=== PATIENT | female | born 1980 | race African-American/Black ===

== ENCOUNTER 2017-08-13 13:18 | Emergency (ER) | payer OTHER ==
[2017-08-13 13:30] VITALS: BP 124/87; PULSE 74; TEMP 98.7; BMI 27.3
[2017-08-13] MEDS ORDERED: KETOROLAC TROMETHAMINE 60 MG/2 ML VIAL IM ONE (14:00)
[2017-08-13] MEDS ORDERED: KETOROLAC TROMETHAMINE 60 MG/2 ML VIAL ONE (14:02)
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
== END 2017-08-13 14:17 | disposition home or self-care (01) ==
LOC: JERFT 13:18 → JER 13:18 → JERFT 14:17
PROC: 2W2DX4Z Dressing of Left Lower Arm using Bandage (ICD-10-PCS; principal; 2017-08-13)
PROC: 3E0233Z Introduction of Anti-inflammatory into Muscle, Percutaneous Approach (ICD-10-PCS; 2017-08-13)
DX: T23.172A Burn of first degree of left wrist, initial encounter (principal); S80.01XA Contusion of right knee, initial encounter; V43.52XA Car driver injured in collision with other type car in traffic accident, initial encounter; W22.11XA Striking against or struck by driver side automobile airbag, initial encounter; Y92.414 Local residential or business street as the place of occurrence of the external cause; Y93.89 Activity, other specified; Y99.9 Unspecified external cause status
CPT/HCPCS: 99281-25

== ENCOUNTER 2019-05-17 15:34 | Day surgery (SDC) | payer OTHER ==
[2019-05-17 16:21] LABS: BASO % 0.7 % (0-2.0); HEMATOCRIT 35.5 % (32.4-45.2); HEMOGLOBIN 12.2 GM/dL (10.7-15.3); MCH 28.3 pg (25.7-33.7); MCHC 34.5 g/dl (32.0-36.0); MEAN CELL VOLUME 82.2 fl (80-96); MEAN PLT VOLUME 8.2 fl (7.5-11.1); MONO % 6.1 % (3.8-10.2); NEUT % 61.2 % (42.8-82.8); PLATELET COUNT 252 K/MM3 (134-434); RBC 4.32 M/mm3 (3.60-5.2); WHITE BLOOD COUNT 7.2 K/mm3 (4.0-10.0)
--- NOTE | 2019-05-17 16:24 | PDOC ---
Documentation entered by Raina Jeong SCRIBE, acting as scribe for Ela Nielson MD. Ela Nielson MD: This documentation has been prepared by the Jean-Paul coulter Brenda, SCRIBE, under my direction and personally reviewed by me in its entirety. I confirm that the documentation accurately reflects all work, treatment, procedures, and medical decision making performed by me. Attending Attestation - Resident Resident Name: Dylon Ferrera - ED Attending Attestation I have performed the following: I have examined & evaluated the patient, The case was reviewed & discussed with the resident, I agree w/resident's findings & plan, Exceptions are as noted - HPI HPI: 05/17/19 16:33 The patient is a 38 year old female, with no significant PMH who was seen at her medical appointment scheduler's office today for follow up of fibroid work up started in November. While there, she mentioned that she has been spotting for the past 2 weeks and also has lower abdominal pain. She was advised to come to the ED for further evaluation. Denies fever, chills, nausea, vomiting, diarrhea and constipation. Denies any urinary symptoms. Allergies: NKA Past surgical history: None reported Social history: Denies any tobacco use. PCP: Ana Galvez 05/17/19 16:50 - Physicial Exam PE: 05/17/19 16:23 GENERAL: The patient is in no acute distress. ENT: Ears normal, nares patent, oropharynx clear without exudates. Moist mucous membranes. NECK: Normal range of motion, supple LUNGS: Breath sounds equal, clear to auscultation bilaterally. No wheezes, and no crackles. HEART:Regular rate and rhythm, normal S1 and S2 without murmur, rub or gallop. ABDOMEN: Soft, lower abdominal tenderness R>L EXTREMITIES: Normal range of motion, no edema. NEUROLOGICAL: Cranial nerves II through XII grossly intact. Normal speech. No focal neurological deficits. SKIN: Warm, Dry, normal turgor, no rashes or lesions noted. - Critical Care Time Total Critical Care Time: 60 Critical Care Statement: The care of this patient involved high complexity decision making to prevent further life threatening deterioration of the patient 's condition and/or to evaluate & treat vital organ system(s) failure or risk of failure. - Medical Decision Making 05/17/19 16:27 Laboratory Tests 05/17/19 16:00 WBC 7.2 Hgb 12.2 Hct 35.5 Plt Count 252 05/17/19 16:51 Laboratory Tests 05/17/19 05/17/19 05/17/19 16:00 16:00 16:00 INR 1.01 BUN 8.2 Creatinine 0.7 Urine Ketones 2+ H Urine Blood 3+ H Urine Nitrite Negative Ur Leukocyte Esterase 1+ H Urine WBC (Auto) 16 Urine Casts (Auto) 14 U Epithel Cells (Auto) 36.9 Urine Bacteria (Auto) 431.7 05/17/19 16:53 US pending 05/17/19 17:23 Laboratory Tests 05/17/19 16:00 Beta HCG, Quant 58535.3 US with right ovarian ectopic - 7 weeks call placed to Dr Hutchins immediately He is reviewing images Will call in OR team Clinical Impression: Right ectopic , initial presentation
[2019-05-17 16:37] LABS: ALBUMIN 4.2 g/dl (3.4-5.0); BLOOD UREA NITROGEN 8.2 mg/dL (7-18); CREATININE 0.7 mg/dL (0.55-1.3); POTASSIUM 3.3 mmol/L (3.5-5.1); TOT PROT 7.8 g/dl (6.4-8.2)
[2019-05-17 16:40] LABS: EPI CELLS 36.9 /HPF (0-5/HPF); HYALINE CASTS 14 /lpf (0-8); URINE APPEARANCE CLOUDY; URINE BACTERIA 431.7 /hpf (NEGATIVE); URINE BILIRUBIN NEGATIVE (NEGATIVE); URINE COLOR YELLOW; URINE GLUCOSE (UA) NEGATIVE (NEGATIVE); URINE KETONE 2+ (NEGATIVE); URINE LEUK ESTERASE 1+ (NEGATIVE); URINE NITRITE NEGATIVE (NEGATIVE); URINE PROTEIN NEGATIVE (NEGATIVE); URINE WBC 16 /hpf (0-5)
--- NOTE | 2019-05-17 16:42 | PDOC ---
History of Present Illness - General Chief Complaint: ,Possible Stated Complaint: ECTOPIC Time Seen by Provider: 05/17/19 15:55 - History of Present Illness Initial Comments: The pt is a 38F w/ no reported PMH who presents from her OBGYN office for evaluation of 2 weeks of vaginal spotting and pelvic pain. She was seen at her OBGYN today for a routine sono but was unable to see the MD. The pt states that the [employer] tech expressed concern for an ecopic and recommended she proceed to the ED. The pt did not think she may be . Her last LMP was . There was not test performed at the OB office. She states the pain is intermittent, sharp, non-radiating, not allevaited or exacerbated by anything she can identify. She denies fevers/chills, chest pain, trouble breathing, N/V/C/D, dysuria, hematuria, or changes in sensation PMH: Denies PSH: C/S 11 y ago SH: Denies x3 Meds: Denies 05/17/19 16:46 Past History - Past Medical History Allergies/Adverse Reactions: Allergies Allergy/AdvReac Type Severity Reaction Status Date / Time No Known Allergies Allergy Verified 05/17/19 15:39 Home Medications: Ambulatory Orders Ibuprofen [Motrin -] 600 mg PO QID #28 tablet 05/18/19 COPD: No - Reproductive History Is Patient Now?: Yes (CFMD TODAY , POSSIBLE ECTOPIC) (#): 4 Para: 2 - Immunization History Immunization Up to Date: Yes - Suicide/Smoking/Psychosocial Hx Smoking History: Never smoked Have you smoked in the past 12 months: No Information on smoking cessation initiated: No Hx Alcohol Use: No Drug/Substance Use Hx: No Substance Use Type: None Review of Systems - Review of Systems Able to Perform ROS?: Yes Comments:: GENERAL/CONSTITUTIONAL: No fever or chills. No weakness HEAD, EYES, EARS, NOSE AND THROAT: No change in vision. No change in hearing. No sore throat CARDIOVASCULAR: No chest pain or shortness of breath RESPIRATORY: Denies cough GASTROINTESTINAL: No nausea, vomiting, diarrhea or constipation GENITOURINARY: No dysuria, frequency, or change in urination MUSCULOSKELETAL: No joint or muscle swelling or pain. No neck or back pain SKIN: No rash NEUROLOGIC: No headache, vertigo, loss of consciousness, or change in strength/ sensation ENDOCRINE: No increased thirst. No abnormal weight change HEMATOLOGIC/LYMPHATIC: No anemia, easy bleeding, or history of blood clots ALLERGIC/IMMUNOLOGIC: No hives or skin allergy 05/17/19 16:37 Is the patient limited Guinean proficient: No *Physical Exam - Vital Signs Last Vital Signs Temp Pulse Resp BP Pulse Ox 98.2 F 72 16 117/68 96 05/17/19 15:39 05/17/19 15:39 05/17/19 15:39 05/17/19 15:39 05/17/19 15:39 - Physical Exam Comments: GENERAL: Awake, alert, and oriented to person/place/time, in no acute distress HEAD: No signs of trauma, normocephalic, atraumatic EYES: PERRLA, EOMI, sclera anicteric, conjunctiva clear ENT: Hearing grossly normal, nares patent, oropharynx clear without exudates. Moist mucosa LUNGS: No distress, speaks in full sentences, clear to auscultation bilaterally HEART: Regular rate and rhythm, normal S1 and S2, no murmurs appreciated, peripheral pulses normal and equal bilaterally ABDOMEN: soft, protuberant, RLQ>LLQ TTP w/o rebound or guarding, +BS EXTREMITIES: Normal inspection, Normal range of motion, no edema. No clubbing or cyanosis NEUROLOGICAL: Cranial nerves II through XII grossly intact. Normal speech, normal gait, no focal sensorimotor deficits SKIN: Warm, Dry Pelvic External genitalia unremarkable Speculum exam with normal appearing whitish vaginal discharge w/ small amount of blood at the cervical os Vaginal wall mucosa is unremarkable Bimanual exam without cervical motion tenderness, R>L adenexal tenderness Cervical os closed, no material observed protruding 05/17/19 16:37 ED Treatment Course - LABORATORY CBC & Chemistry Diagram: 05/18/19 06:45 05/18/19 06:45 - ADDITIONAL ORDERS Additional order review: 05/17/19 16:00 RBC 4.32 MCV 82.2 MCHC 34.5 RDW 13.0 MPV 8.2 Neutrophils % 61.2 Lymphocytes % 31.0 D Monocytes % 6.1 Eosinophils % 1.0 Basophils % 0.7 - RADIOLOGY Radiology Studies Ordered: Category Date Time Status TRANSVAGINAL US PREG [US] Stat Ultrasound 05/17/19 15:52 Ordered Medical Decision Making - Medical Decision Making The pt is a 38F who presents for evaluation of 2 weeks of vaginal spotting and R >L pelvic pain Dx: fibroids, , ectopic , ovarian cyst, UTI/pyelo ED Course CMP, CBC, T/S, Coags, Beta-quant TVUS 05/17/19 16:42 +Beta and TVUS w/ R ectopic -Case discussed w/ Dr. Camarena. Pt okay with going to OR [facility] Beta [id number] Dispo: Admit *DC/Admit/Observation/Transfer Diagnosis at time of Disposition: Ectopic Qualifiers: Location of ectopic : unspecified location Intrauterine status: without intrauterine Qualified Code(s): O00.90 - Unspecified ectopic without intrauterine - Discharge Dispostion Condition at time of disposition: Guarded Decision to Admit order: Yes - Prescriptions - Referrals - Patient Instructions - Post Discharge Activity
[2019-05-17 16:49] LABS: INR 1.01 (0.83-1.09); PROTHROMBIN TIME (PATIENT) 11.9 SEC (9.7-13.0)
[2019-05-17] MEDS ORDERED: SODIUM CHLORIDE 0.9% 500 ML INFUS.BAG IV ONE (19:06)
[2019-05-17] MEDS ORDERED: fentaNYL CITRATE 250 MCG/5 ML VIAL ONE (20:24)
[2019-05-17] MEDS ORDERED: SUCCINYLCHOLINE CHLORIDE 200 MG/10 ML SYRINGE ONE (20:24)
[2019-05-17] MEDS ORDERED: MIDAZOLAM HCL 2 MG/2 ML SINGLE DOSE VIAL ONE (20:24)
[2019-05-17] MEDS ORDERED: ROCURONIUM BROMIDE 50 MG/5 ML SYRINGE ONE (20:24)
[2019-05-17] MEDS ORDERED: PROPOFOL 20 ML ONE (20:24)
--- NOTE | 2019-05-17 20:57 | HP ---
Past Medical History - Primary Care Physician PCP:: Arvind Camarena - Admission Chief Complaint: r/o rt tubal ectopic History of Present Illness: 38 yo f with positve test and vaginal spotting , has on and off low abdominal [pain, TVS 6.6 weeks,live in RT tube, admitted for laparoscopic Rt salpingectomy, procedure risks has explained to patient, ulternatives and medical tx explained . risks of infection, bleeding, injury to bowel and bladder discussed History Source: Patient Limitations to Obtaining History: No Limitations - Past Medical History ...: 2 ...Para: 2 - Past Surgical History Past Surgical History: Yes: Hx Myomectomy: No Hx Transabdominal Cerclage: No - Smoking History Smoking history: Never smoked Have you smoked in the past 12 months: No - Alcohol/Substance Use Hx Alcohol Use: No - Social History History of Recent Travel: No Home Medications - Allergies Allergies/Adverse Reactions: Allergies Allergy/AdvReac Type Severity Reaction Status Date / Time No Known Allergies Allergy Verified 05/17/19 15:39 - Home Medications Home Medications: Ambulatory Orders NK [No Known Home Medication] 05/17/19 Review of Systems - Review of Systems Constitutional: reports: No Symptoms Eyes: reports: No Symptoms HENT: reports: No Symptoms Neck: reports: No Symptoms Cardiovascular: reports: No Symptoms Respiratory: reports: No Symptoms Gastrointestinal: reports: Abdominal Pain Genitourinary: reports: Vaginal Bleeding Musculoskeletal: reports: No Symptoms Integumentary: reports: No Symptoms Neurological: reports: No Symptoms Endocrine: reports: No Symptoms Hematology/Lymphatic: reports: No Symptoms Psychiatric: reports: No Symptoms Physical Exam-DIGITAL PRODUCTION MANAGER Vital Signs: Vital Signs Temperature 98.2 F 05/17/19 15:39 Pulse Rate 82 05/17/19 19:00 Respiratory Rate 18 05/17/19 19:00 Blood Pressure 127/79 05/17/19 19:00 O2 Sat by Pulse Oximetry (%) 100 05/17/19 19:34 Constitutional: Yes: Well Nourished, No Distress, Calm Eyes: Yes: WNL, Conjunctiva Clear, EOM Intact HENT: Yes: WNL, Atraumatic, Normocephalic Neck: Yes: WNL, Supple, Trachea Midline Cardiovascular: Yes: WNL, Regular Rate and Rhythm Respiratory: Yes: WNL, Regular, CTA Bilaterally Gastrointestinal: Yes: WNL ...Rectal Exam: Yes: WNL Renal/: Yes: WNL Cervix: Yes: Normal, Bleeding Uterus: Yes: Normal Adnexa: Tender: Right, Left, Not Palpable: Right, Left Breast(s): Yes: WNL Musculoskeletal: Yes: WNL Extremities: Yes: WNL Edema: No Integumentary: Yes: WNL Neurological: Yes: WNL, Alert, Oriented ...Motor Strength: WNL Psychiatric: Yes: WNL, Alert, Oriented Labs: CBC, BMP 05/17/19 16:00 05/17/19 16:00 Imaging - Results Chest X-ray: Report Reviewed Problem List - Problem (1) Right tubal Code(s): O00.101 - RIGHT TUBAL WITHOUT INTRAUTERINE Assessment/Plan laparoscopy RT salpingectomy
[2019-05-17] MEDS ORDERED: ceFAZolin SODIUM 1 GM VIAL IVPB ONE (21:55)
[2019-05-17] MEDS ORDERED: DEXAMETHASONE SOD PHOSPHATE 4 MG/1 ML VIAL ONE (21:56)
[2019-05-17] MEDS ORDERED: ceFAZolin SODIUM 1 GM VIAL ONE (21:56)
[2019-05-17] MEDS ORDERED: KETOROLAC TROMETHAMINE 30 MG/1 ML VIAL ONE (21:56)
[2019-05-17] MEDS ORDERED: ONDANSETRON 4 MG/2 ML VIAL ONE (21:56)
[2019-05-17] MEDS ORDERED: GLYCOPYRROLATE 0.2 MG/1 ML VIAL ONE (22:00)
[2019-05-17] MEDS ORDERED: NEOSTIGMINE METHYLSULFATE 0.5 MG/1 ML - 10 ML MDV ONE (22:00)
[2019-05-17] MEDS ORDERED: HYDROmorphone HCl 2 MG/ML VIAL ONE (22:08)
[2019-05-17] MEDS ORDERED: oxyCODONE HCL 5 MG TABLET PO PRN (22:51)
[2019-05-17] MEDS ORDERED: ONDANSETRON 4 MG/2 ML VIAL IVPUSH PRN ×2 (22:51→22:53)
[2019-05-17] MEDS ORDERED: IBUPROFEN 600 MG TABLET (FP) PO PRN (22:51)
[2019-05-17] MEDS ORDERED: IBUPROFEN 800 MG/8 ML IJ IVPB PRN (22:51)
[2019-05-17] MEDS ORDERED: ACETAMINOPHEN 1000 MG/100 ML VIAL (NON FORMULARY) IVPB ONE (22:53)
[2019-05-17] MEDS ORDERED: PROMETHAZINE HCL 25 MG/1 ML VIAL IVPUSH PRN (22:53)
--- NOTE | 2019-05-17 22:56 | OP ---
Operative Note - Note: Operative Date: 05/17/19 Pre-Operative Diagnosis: Rt tubal ectopic Operation: D&C , laparoscopy .RT salpingectomy Findings: large RT tubal ectopic , hemoperitonium Surgeon: Arvind Camarena [employer] Consultant: Gutierrez Damon Anesthesia: General Specimens Removed: EMC, RT fallopian tube with content Estimated Blood Loss (mls): 25 Drains & Tubes with Location: lovett 200cc Blood Volume Replaced (mls): 0 Operative Report Dictated: Yes
[2019-05-17] MEDS ORDERED: ELECTROLYTE-148 SOLN 1,000 ML IV SCH (23:00)
[2019-05-17] MEDS ORDERED: LACTATED RINGERS SOLUTION 1,000 ML IV SCH (23:00)
[2019-05-17] MEDS ORDERED: ACETAMINOPHEN INJECTION 100 ML IVPB ONE (23:06)
--- NOTE | 2019-05-17 23:53 | OP ---
DATE OF OPERATION: 05/17/2019 PREOPERATIVE DIAGNOSIS: Right tubal ectopic . POSTOPERATIVE DIAGNOSIS: Right tubal ectopic , hemoperitoneum. PROCEDURE: Dilation and curettage, laparoscopy, and right salpingectomy. SURGEON: Anshul Silva MD IMPLEMENTATION TECHNICIAN: WINDY Heart ANESTHESIA: General. ANESTHESIOLOGIST: Jonh Chowdhury MD ESTIMATED BLOOD LOSS: 25 mL. DESCRIPTION OF PROCEDURE: The patient was taken to the operating room and had adequate general anesthesia induced. Placed in the supine position. Examination under anesthesia revealed external genitalia to be normal. Vagina was normal. Cervix was clean. No gross lesion with small amount of blood in the os. The uterus had normal sized adnexa. No masses were palpable. We then placed the weighted speculum in the vagina and the anterior lip of the cervix was grasped with a single-toothed tenaculum. Hulka was introduced for manipulation. Bustos was inserted. The patient was prepped and draped for a laparoscopy. A small infraumbilical skin was made. Veress needle was introduced. Pneumoperitoneum was established. A 5-mm trocar was introduced and then the cannula was introduced with visualization of the upper abdomen, which showed normal. Liver was normal. Diaphragm normal. Uterus was prominent. There was a large right tubal ectopic noticed in the right tube with hemoperitoneum and blood in the cul-de-sac area. A 10-mm trocar, under direct vision, was introduced through the left epigastric area and the 5-mm to the right epigastric. The right tube was grasped with a grasper and with LigaSure cautery, cauterized along the mesosalpinx and removed in its entirety, and put in an Endo Catch and removed through the 10-mm trocar. Pelvic cavity was several times irrigated. No active bleeding was seen. The site of the incision was checked with no bleeding. The left hypogastric area fascia was closed with interrupted suture of 0 Vicryl. The skin was brought together with 3-0 Biosyn interrupted suture. The umbilical area was closed with 2-0 Vicryl suture and then the skin closed with 3-0 Biosyn. The right epigastric area was closed with 3-0 Biosyn. Patient tolerated the procedure well and left the OR in good condition. ANSHUL SILVA M.D. [id number]
[2019-05-18 02:36] VITALS: BMI 26.7
--- NOTE | 2019-05-18 07:11 | PN ---
Progress Note (short form) - Note Progress Note: pod 1 s/p laparoscopy salpingectomy,has mild incisional pain , voids ok, no excess vaginal bleeding Last Vital Signs Temp Pulse Resp BP Pulse Ox 97.5 F L 64 18 103/62 99 05/18/19 02:00 05/18/19 02:00 05/18/19 02:00 05/18/19 02:00 05/18/19 00:47 abdomen soft, no distension, no cva incisons dry, clean no calf tenderness impression doing well, afebrile plan cbc , ambulate plan for d/c home today, follow up office 2 weeks Problem List - Problems (1) Right tubal Code(s): O00.101 - RIGHT TUBAL WITHOUT INTRAUTERINE
[2019-05-18 08:13] VITALS: BP 112/55; PULSE 73; TEMP 98.1
[2019-05-18 08:15] LABS: HEMATOCRIT 34.2 % (32.4-45.2); HEMOGLOBIN 11.7 GM/dL (10.7-15.3); MCH 28.2 pg (25.7-33.7); MCHC 34.3 g/dl (32.0-36.0); MEAN CELL VOLUME 82.4 fl (80-96); MEAN PLT VOLUME 8.1 fl (7.5-11.1); PLATELET COUNT 245 K/MM3 (134-434); RBC 4.15 M/mm3 (3.60-5.2); RDW 12.6 % (11.6-15.6); WHITE BLOOD COUNT 9.9 K/mm3 (4.0-10.0)
[2019-05-18 08:39] LABS: BLOOD UREA NITROGEN 5.9 mg/dL (7-18); CALCIUM 8.7 mg/dL (8.5-10.1); CREATININE 0.6 mg/dL (0.55-1.3)
--- NOTE | 2019-05-18 11:41 | EKG ---
Test Reason : Blood Pressure : / mmHG Vent. Rate : 075 BPM Atrial Rate : 075 BPM P-R Int : 172 ms QRS Dur : 070 ms QT Int : 402 ms P-R-T Axes : 061 033 017 degrees QTc Int : 448 ms NORMAL SINUS RHYTHM NONSPECIFIC ST ABNORMALITY WHEN COMPARED WITH ECG OF 21-MAY-2014 02:29, NO SIGNIFICANT CHANGE WAS FOUND Confirmed by SHER BAJWA MD ([id number]) on 05/18/2019 11:41:07 AM Referred By: Confirmed By:SHER BAJWA MD
--- NOTE | 2019-05-22 16:07 | PATH ---
Surgical Pathology Report Patient Name: JACKY SUN [facility]. Rec. #: [id number] /Age/Gender: 1980 (Age: 38) / F Account: [id number] Location: AMBULATORY SURG Taken: 05/17/2019 Received: 05/18/2019 Reported: 05/21/2019 Physicians: Arvind Camarena M.D. Specimen(s) Received A: FALLOPIAN TUBE AND PRODUCTS OF CONCEPTION, RIGHT B: ENDOMETRIAL CURETTINGS Clinical History Ectopic Final Diagnosis A. FALLOPIAN TUBE AND PRODUCTS OF CONCEPTION, RIGHT, LAPAROSCOPIC SALPINGECTOMY: CHORIONIC VILLI IN A BACKGROUND OF HEMORRHAGE PRESENT WITHIN THE FALLOPIAN TUBE, CONSISTENT WITH ECTOPIC . PARATUBAL CYST. B. ENDOMETRIAL CURETTINGS, DILATION AND CURETTAGE: FRAGMENTS OF GESTATIONAL ENDOMETRIUM AND DECIDUA. Electronically Signed Ana Gallegos M.D. Gross Description A. Received in formalin labeled "right fallopian tube and products of conception," is a 4.6 cm in length markedly dilated, fimbriated portion of fallopian tube. There is a 1.2 cm in greatest dimension paratubal cyst attached to the fimbria. Sectioning reveals red-brown blood clot within the lumen. No definitive villous tissue or somatic tissue is identified. Designer/Writer sections are submitted in 4 cassettes as follows: 1-fimbria and paratubal cyst; 2-4-cross sections of fallopian tube. B. Received in formalin labeled "endometrial curetting," is a 3.0 x 3.0 x 0.4 cm aggregate of lopez-brown soft tissue fragments admixed with blood clot. The formalin is altered and the specimen is entirely submitted in 2 cassettes. A 05/18/2019 [facility]05/18/2019
== END 2019-05-18 11:15 | disposition home or self-care (01) ==
LOC: JER 15:34 → JERBED 19:03 → UNDOADMIN 19:03 → J5S 21:06 → JERBED 21:06 → JASUSAT 22:51 → J5S 05-18 11:13 → JASUSAT 05-18 11:15
PROVIDERS: ATTEND Obstetrics & Gynecology
PROC: 10D27ZZ Extraction of Products of Conception, Ectopic, Via Natural or Artificial Opening (ICD-10-PCS; 2019-05-17)
PROC: 0UT54ZZ Resection of Right Fallopian Tube, Percutaneous Endoscopic Approach (ICD-10-PCS; principal; 2019-05-17 21:00)
DX: O00.101 Right tubal pregnancy without intrauterine pregnancy (principal); K66.1 Hemoperitoneum
CPT/HCPCS: 36415; 76817-TC; 80048; 80053; 81003; 84702; 85025; 85027; 85610; 85730; 86850; 86900; 86901; 88305-TC; 93005; 93010; 94760; 99284-25; J0131

== ENCOUNTER → 2020-04-23 | Day surgery (SDC) | payer OTHER ==
[2020-04-22 08:55] VITALS: BMI 29.0
[~2020-04-23] MED LIST: BUPIVACAINE HCL 50 ML ONE; LIDOCAINE HCL 1%, 10 MG/ML (20ML VIAL) ONE
== END | disposition home or self-care (01) ==
LOC: JASU-SURG 04:31
PROVIDERS: ATTEND Podiatrist
DX: Z53.8 Procedure and treatment not carried out for other reasons (principal)

== ENCOUNTER 2023-08-01 05:06 | Day surgery (SDC) | payer OTHER ==
[2023-07-28 12:44] VITALS: BMI 29.9
[2023-08-01] MEDS ORDERED: BUPIVACAINE HCL/PF 0.5% (5MG/ML) 10 ML VIAL ONE (13:30)
[2023-08-01] MEDS ORDERED: FENTANYL CITRATE/PF 50 MCG/ML VIAL ONE ×2 (13:43→14:17)
[2023-08-01] MEDS ORDERED: MIDAZOLAM HCL 2 MG/2 ML SINGLE DOSE VIAL ONE (13:43)
[2023-08-01] MEDS ORDERED: ceFAZolin SODIUM 1 GM VIAL IVPB ONE (14:07)
[2023-08-01] MEDS ORDERED: HYDROmorphone HCl 2 MG/ML VIAL ONE (14:07)
[2023-08-01] MEDS ORDERED: ROCURONIUM BROMIDE 50 MG/5 ML SYRINGE ONE (14:15)
[2023-08-01] MEDS ORDERED: BUPIVACAINE HCL/PF 0.5% (5 MG/ML) 30 ML VIAL IJ ONE (14:17)
[2023-08-01] MEDS ORDERED: NEOSTIGMINE METHYLSULFATE 0.5 MG/1 ML - 10 ML MDV ONE (14:34)
[2023-08-01] MEDS ORDERED: ONDANSETRON 4 MG/2 ML VIAL IVPUSH PRN (15:10)
[2023-08-01] MEDS ORDERED: oxyCODONE HCL 5 MG TABLET PO PRN (15:10)
[2023-08-01] MEDS ORDERED: LACTATED RINGERS SOLUTION 1,000 ML IV SCH (15:15)
[2023-08-01 15:45] VITALS: RESP 18
[2023-08-01 18:08] VITALS: BP 121/72; PULSE 80; TEMP 97.8
== END 2023-08-01 18:12 | disposition home or self-care (01) ==
LOC: JASU-SURG 05:06
PROVIDERS: ATTEND Surgery
PROC: 0WQF0ZZ Repair Abdominal Wall, Open Approach (ICD-10-PCS; principal; 2023-08-01 13:00)
DX: K43.9 Ventral hernia without obstruction or gangrene (principal)
CPT/HCPCS: 81025; 88302-TC; 94760